=== PATIENT | female | born 1960 | race Caucasian/White ===

== ENCOUNTER → 2019-01-31 | Outpatient (CLI) | payer BC ==
[2019-01-31 20:45] LABS: ANION GAP 17.8; CHLORIDE,CL 101 mmol/L (101-111); SODIUM,NA 135 mmol/L (135-145)
== END ==
LOC: DL.CLIN 14:15
PROVIDERS: ATTEND Physician Assistant Medical
DX: I25.10 Atherosclerotic heart disease of native coronary artery without angina pectoris (principal); R53.83 Other fatigue; R10.9 Unspecified abdominal pain; E53.8 Deficiency of other specified B group vitamins
CPT/HCPCS: 80053; 80061; 82306; 84443; 85025; 87086

== ENCOUNTER → 2019-02-06 | Outpatient (CLI) | payer BC | LOC: DL.CT 08:44 | PROVIDERS: ATTEND Physician Assistant Medical | DX: N17.9 Acute kidney failure, unspecified (principal); R10.9 Unspecified abdominal pain; N32.89 Other specified disorders of bladder | CPT/HCPCS: 74176 ==

== ENCOUNTER 2019-11-04 11:08 | Emergency (ER) | payer BC ==
[2019-11-04] MEDS ORDERED: Ketorolac 30 MG/ML SDV IM ONE (12:00)
--- NOTE | 2019-11-04 12:11 | EDM.PDOC ---
<Radha Olguin - Last Filed: 11/04/19 12:06> ED HPI GENERAL MEDICAL PROBLEM - General Chief Complaint: Back Pain or Injury Stated Complaint: BACK PAIN Time Seen by Provider: 11/04/19 12:00 Source of Information: Reports: Patient History Limitations: Reports: No Limitations - History of Present Illness INITIAL COMMENTS - FREE TEXT/NARRATIVE: Patient presents to the ED with concerns of lower back pain radiating into her right leg. The patient reports an extensive history of multiple spinal procedures. She apparently sees a provider in [place] who did give an epidural steroid injection on October 17, 2019, the patient reports that this did not provide relief. The patient reports her pain since yesterday has been severe, . She reports to the nurse taking tramadol over the weekend but did not take this medication today, as it does not help. The patient reports taking 1 aleve at approximately 8 am this morning. She denies any bowel or bladder incontinence. Denies saddle anesthesia. Onset Date: 11/03/19 Duration: Getting Worse Location: Reports: Back, Lower Extremity, Right Quality: Reports: Sharp Severity: Severe Improves with: Reports: None Worsens with: Reports: None Associated Symptoms: Reports: No Other Symptoms Treatments ANALYTICS SPECIALIST: Reports: NSAIDS (tramadol reported over weekend, aleve this morning 8 am) Lower Back Pain Score (Numeric/FACES): 10 - Related Data Allergies Allergy/AdvReac Type Severity Reaction Status Date / Time No Known Allergies Allergy Verified 11/04/19 11:34 Home Meds: Home Meds Aspirin [Adult Low Dose Aspirin EC] 81 mg PO DAILY 08/25/15 [History] Lisinopril [Prinivil] 20 mg PO DAILY 08/25/15 [History] Metoprolol Tartrate 25 mg PO BID 08/25/15 [History] atorvaSTATin Calcium [Atorvastatin Calcium] 40 mg PO DAILY 08/25/15 [History] Vitamin B Complex [B Complex] 1 each PO DAILY 08/26/15 [History] Past Medical History HEENT History: Reports: Impaired Vision Cardiovascular History: Reports: ME, Stents - Past Surgical History Neurological Surgical History: Reports: Lumbar Spine, Other (See Below) Other Neurological Surgeries/Procedures: Hx of lumbar surgery X3. Social & Family History - Tobacco Use Smoking Status *Q: Current Every Day Smoker Years of Tobacco use: 20 Packs/Tins Daily: 0.5 - Caffeine Use Caffeine Use: Reports: Coffee - Recreational Drug Use Recreational Drug Use: No ED ROS GENERAL - Review of Systems Review Of Systems: See Below Constitutional: Denies: Fever, Chills GI/Abdominal: Denies: Abdominal Pain, Constipation, Diarrhea, Nausea, Stool Incontinence : Denies: Frequency, Hematuria, Urgency Musculoskeletal: Reports: Back Pain, Leg Pain Neurological: Reports: Difficulty Walking. Denies: Numbness, Paresthesia, Tingling ED EXAM,LOWER BACK PAIN/INJURY - Physical Exam Exam: See Below Exam Limited By: No Limitations General Appearance: Alert, Moderate Distress Head: Atraumatic, Normocephalic Respiratory/Chest: No Respiratory Distress, Lungs Clear, Normal Breath Sounds Cardiovascular: Normal Peripheral Pulses, Regular Rate, Rhythm, No Murmur Back Exam: No: CVA Tenderness (L), CVA Tenderness (R) Extremities: Leg Pain (right leg sciatic nerve distribution) Neurological: Alert, Oriented x 3 Skin Exam: Warm, Dry, Intact Course - Vital Signs Last Recorded V/S: Last Vital Signs Temp 36.9 C 11/04/19 11:29 Pulse 78 11/04/19 14:24 Resp 18 11/04/19 14:24 BP 135/63 11/04/19 14:24 Pulse Ox 94 L 11/04/19 14:24 - Orders/Labs/Meds Meds: Medications Discontinued Medications Generic Name Dose Route Start Last Admin Trade Name Bjq PRN Reason Stop Dose Admin Hydromorphone HCl 0.5 mg 11/04/19 12:39 11/04/19 13:22 Dilaudid IVPUSH 11/04/19 12:40 0.5 mg ONETIME ONE Administration Ketorolac Tromethamine 30 mg 11/04/19 12:00 11/04/19 12:20 Toradol IM 11/04/19 12:01 30 mg ONETIME ONE Administration Ketorolac Tromethamine 30 mg 11/04/19 12:19 11/04/19 12:21 Toradol IVPUSH 11/04/19 12:20 Not Given ONETIME ONE Ondansetron HCl 4 mg 11/04/19 12:39 11/04/19 13:24 Zofran IVPUSH 11/04/19 12:40 4 mg ONETIME ONE Administration Departure - Departure Disposition: Home, Self-Care 01 Clinical Impression: Lumbar radiculopathy, right - Discharge Information Instructions: Lumbosacral Radiculopathy Forms: ED Department Discharge Additional Instructions: 1) rest 2) avoid bending lifting straining 3) try ice or heat to sore areas 4) call Dr Bautista office for earlier surgical appointment 5) see [facility] for further meds rx given; flexeril 10mg tid prn spasms x 12 vicodin 5/325mg tid prn x 12 Sepsis Event Note - Evaluation Sepsis Screening Result: No Definite Risk - Focused Exam Vital Signs: Vital Signs Temp Pulse Resp BP Pulse Ox 11/04/19 14:24 78 18 135/63 94 L 11/04/19 11:29 36.9 C 140 H 22 H 147/79 H 100 Date Exam was Performed: 11/04/19 Time Exam was Performed: 12:06 <Tunde Pastor - Last Filed: 11/04/19 18:02> ED HPI GENERAL MEDICAL PROBLEM - History of Present Illness INITIAL COMMENTS - FREE TEXT/NARRATIVE: pt states Dr Chacon @ [facility] Neurosurgeon had eval her with MRI and did schedule for surgery on and was told if problem worsen then she needs to come to ER and possibly transfer for emergency surgery. Course - Re-Assessments/Exams Free Text/Narrative Re-Assessment/Exam: 11/04/19 13:22 discharge discussed with pt Departure - Departure Time of Disposition: 14:25 Condition: Good Sepsis Event Note - Focused Exam Date Exam was Performed: 11/04/19 Time Exam was Performed: 18:02
[2019-11-04] MEDS ORDERED: Ketorolac 30 MG/ML SDV IVPUSH ONE (12:19)
[2019-11-04] MEDS ORDERED: Ondansetron 4 MG/2 ML SDV IVPUSH ONE (12:39)
[2019-11-04] MEDS ORDERED: HYDROmorphone 0.5 MG/0.5 ML Syringe IVPUSH ONE (12:39)
== END 2019-11-04 14:26 | disposition home or self-care (01) ==
LOC: DL.ED 11:08
DX: M54.16 Radiculopathy, lumbar region (principal); F17.210 Nicotine dependence, cigarettes, uncomplicated; I25.2 Old myocardial infarction; Z79.82 Long term (current) use of aspirin; Z79.899 Other long term (current) drug therapy
CPT/HCPCS: 96372; 96374; 96375; 99283; J1170; J1885; J2405